=== PATIENT | female | born 1990 | race Caucasian/White ===

== ENCOUNTER 2017-07-26 21:12 | Emergency (ER) | payer MEDICAID, OTHER ==
[2017-07-26] MEDS ORDERED: SODIUM CHLORIDE 0.9% 1,000 ML IV ONE (21:45)
[2017-07-26 21:48] LABS: BASOPHILS # (AUTO) 0.1 10^3/uL (0.0-0.1); EOSINOPHILS # (AUTO) 0.5 10^3/uL (0.0-0.7); EOSINOPHILS % (AUTO) 5.3 %; HCT - HEMATOCRIT 39.8 % (37.0-47.0); HGB - HEMOGLOBIN 13.5 g/dL (12.0-16.0); LYMPHOCYTES # (AUTO) 3.1 10^3/uL (1.5-3.5); LYMPHOCYTES % (AUTO) 30.7 %; MEAN CORPUSCULAR HEMOGLOBIN 29.4 pg (27.0-31.0); MEAN CORPUSCULAR HGB CONC 33.9 g/dL (32.0-36.0); MEAN CORPUSCULAR VOLUME 86.5 fL (81.0-99.0); MEAN PLATELET VOLUME 6.8 fL (7.9-10.8); MONOCYTES # (AUTO) 0.7 10^3/uL (0.0-1.0); MONOCYTES % (AUTO) 6.8 %; NEUTROPHILS # (AUTO) 5.7 10^3/uL (1.5-6.6); NEUTROPHILS % (AUTO) 56.2 %; NUCLEATED RED BLOOD CELLS AUTO 0.1 /100WBC; RED CELL DISTRIBUTION WIDTH 13.5 % (12.0-15.0); UNCORRECTED WHITE BLOOD COUNT 10.1 x10^3/uL; WHITE BLOOD COUNT 10.1 x10^3/uL (4.8-10.8)
[2017-07-26 21:56] LABS: BILIRUBIN,URINE NEGATIVE (NEGATIVE)
[2017-07-26 21:59] LABS: UA CHARGE (STRIP ONLY) YES; UR CULTURE IF IND NOT INDICATED
[2017-07-26 22:00] LABS: ALBUMIN/GLOBULIN RATIO 1.1 (1.0-2.2); BILIRUBIN,TOTAL 0.7 mg/dL (0.2-1.0); CALCIUM 8.6 mg/dL (8.5-10.3); CREATININE 0.8 mg/dL (0.4-1.0); POTASSIUM 3.4 mmol/L (3.5-5.0); TOTAL PROTEIN 7.8 g/dL (6.7-8.2)
[2017-07-26 22:00] LABS: HCG UR QUAL NEGATIVE
[2017-07-26] MEDS ORDERED: KETOROLAC 30 MG/ML VIAL ONE (22:14)
[2017-07-26] MEDS ORDERED: KETOROLAC 30 MG/ML VIAL IVP STA (22:18)
[2017-07-26] MEDS ORDERED: IOPAMIDOL-300 100 ML VIAL ONE (22:31)
--- NOTE | 2017-07-26 22:35 | ED Physician Documentation ---
PD HPI ABD PAIN - Stated complaint Stated Complaint: RT ABD PX - Chief complaint Chief Complaint: Abd Pain - History obtained from History obtained from: Patient - History of Present Illness Timing - onset: Yesterday Timing - details: Gradual onset, Still present Quality: Cramping, Aching Location: RLQ, Suprapubic Radiation: Lower back Worsened by: Moving, Palpation Associated symptoms: Nausea, Loss of appetite. No: Fever, Vomiting, Diarrhea, Constipation, Dysuria, Hematuria Similar symptoms before: Work up / diagnostics, Treatment Recently seen: Not recently seen - Additional information Additional information: Patient is a 27 year old female with a history of endometriosis who is presenting to the emergency department for right lower quadrant pain. Patient states that it started yesterday around 6pm (27 hours prior) and has been constant. Patient states that it is in her right lower quadrant and some periumbilical pain. Patient states that it is different than her previous pain. Patient states that she hasn't fell like eating and has some nausea, but no vomiting. Review of Systems Constitutional: denies: Fever, Chills Eyes: denies: Decreased vision Ears: denies: Ear pain, Drainage/discharge Nose: reports: Reviewed and negative Throat: reports: Reviewed and negative Cardiac: denies: Chest pain / pressure, Palpitations Respiratory: reports: Reviewed and negative GI: reports: Abdominal Pain, Nausea. denies: Vomiting, Constipation, Diarrhea : reports: Vaginal bleeding. 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: Other - Present Medications Home Medications: Ambulatory Orders Medication Instructions Recorded Confirmed No Known Home Medications [No 07/26/17 07/26/17 Known Home Medications] - Allergies Allergies/Adverse Reactions: Allergies Allergy/AdvReac Type Severity Reaction Status Date / Time Penicillins Allergy Rash Verified 07/26/17 21:23 - Social History Does the pt smoke?: No Smoking Status: Never smoker Does the pt drink ETOH?: No Does the pt have substance abuse?: No - Immunizations Immunizations are current?: Yes PD ED PE NORMAL - Vitals Vital signs reviewed: Yes - General General: Alert and oriented X 3, No acute distress - HEENT HEENT: Atraumatic, PERRL - Neck Neck: Supple, no meningeal sign - Cardiac Cardiac: RRR, No murmur, No rub - Respiratory Respiratory: No respiratory distress - Derm Derm: Normal color, Warm and dry, No rash - Extremities Extremities: No deformity, No tenderness to palpate, No edema - Neuro Neuro: Alert and oriented X 3, No motor deficit, No sensory deficit, Normal speech - Psych Psych: Normal mood, Normal affect PD ED PE EXPANDED - HEENT HEENT: Dry mucous membranes - Abdomen Abdomen: Tender to palpation, RLQ, Generalized/diffuse (diffuse, worse in right lower quadrant ). No: Rebound, Guarding Results - Vitals Vitals: Vital Signs - 24 hr 07/26/17 07/26/17 21:20 23:22 Temperature 36.8 C 36.5 C Heart Rate 89 83 Respiratory 18 17 Rate Blood Pressure 121/77 114/59 L O2 Saturation 99 98 Oxygen O2 Source Room air - Labs Labs: Laboratory Tests 07/26/17 07/26/17 07/26/17 21:39 21:39 Unknown WBC 10.1 RBC 4.60 Hgb 13.5 Hct 39.8 MCV 86.5 MCH 29.4 MCHC 33.9 RDW 13.5 Plt Count 369 MPV 6.8 L Neut # 5.7 Lymph # 3.1 Schley # 0.7 Eos # 0.5 Baso # 0.1 Absolute Nucleated RBC 0.01 Nucleated RBC % 0.1 Sodium 136 Potassium 3.4 L Chloride 102 Carbon Dioxide 26 Anion Gap 8.0 BUN 25 H Creatinine 0.8 Estimated GFR (MDRD) 85 L Glucose 119 H Calcium 8.6 Total Bilirubin 0.7 AST 23 ALT 32 Alkaline Phosphatase 73 Total Protein 7.8 Albumin 4.1 Globulin 3.7 Albumin/Globulin Ratio 1.1 Lipase 27 Urine Color YELLOW Urine Clarity CLEAR Urine pH 6.0 Ur Specific [place] 1.015 Urine Protein NEGATIVE Urine Glucose (UA) NEGATIVE Urine Ketones NEGATIVE Urine Occult Blood NEGATIVE Urine Nitrite NEGATIVE Urine Bilirubin NEGATIVE Urine Urobilinogen 0.2 (NORMAL) Ur Leukocyte Esterase NEGATIVE Ur Microscopic Review NOT INDICATED Urine Culture Comments NOT INDICATED Urine HCG, Qual 10/19/17 Unknown WBC RBC Hgb Hct MCV MCH MCHC RDW Plt Count MPV Neut # Lymph # Schley # Eos # Baso # Absolute Nucleated RBC Nucleated RBC % Sodium Potassium Chloride Carbon Dioxide Anion Gap BUN Creatinine Estimated GFR (MDRD) Glucose Calcium Total Bilirubin AST ALT Alkaline Phosphatase Total Protein Albumin Globulin Albumin/Globulin Ratio Lipase Urine Color Urine Clarity Urine pH Ur Specific [place] 1.015 Urine Protein Urine Glucose (UA) Urine Ketones Urine Occult Blood Urine Nitrite Urine Bilirubin Urine Urobilinogen Ur Leukocyte Esterase Ur Microscopic Review Urine Culture Comments Urine HCG, Qual NEGATIVE - Rads (name of study) ct abdomen and pelvis Radiology: Final report received (unremarkable) PD MEDICAL DECISION MAKING - ED course Complexity details: reviewed old records, reviewed results, re-evaluated patient , considered differential, d/w patient ED course: Patient was seen and examined at bedside. IV access was gained, labs were drawn and urine was collected. Patient was treated with toradol for pain. Patient's silva score was elevated so CT was ordered. When patient returned the results were reviewed. there were no acute abnormalities. Patient required no further work up and was stable for discharge with outpatient follow up. Departure - Departure Disposition: Home, Self Care Clinical Impression: Endometriosis determined by laparoscopy Condition: Good Instructions: Endometriosis Coping Follow-Up: primary,care provider [Other] - As Needed Comments: Your diagnostics today were within normal limits. there were no major abnormalities on your blood work or imaging. It is likely secondary to your endometriosis. 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 You may return to the emergency department at any time for new , worsening or uncontrollable symptoms.
[2017-07-26] MEDS ORDERED: IOPAMIDOL-300 100 ML VIAL IVP ONE (23:01)
--- NOTE | 2017-07-26 23:18 | CT Preliminary Report ---
Exam: CT ABDOMEN/PELVIS W/ IMPRESSION: Cholecystectomy noted, otherwise unremarkable abdomen and pelvis CT. Normal appendix. [facility] SITE ID: [id number]
--- NOTE | 2017-07-26 23:21 | CT Report ---
EXAM: CT ABDOMEN AND PELVIS EXAM DATE: 07/26/2017 11:06 PM. CLINICAL HISTORY: Right lower quadrant pain. Leukocytosis. COMPARISONS: None. TECHNIQUE: Routine helical CT imaging was performed through the abdomen and pelvis. IV contrast: 100 cc of Isovue-300. Enteric contrast: No. Reconstructions: Coronal and sagittal. In accordance with CT protocol optimization, one or more of the following dose reduction techniques w ere utilized for this exam: automated exposure control, adjustment of mA and/or KV based on patient s ize, or use of iterative reconstructive technique. FINDINGS: Lung Bases: Unremarkable. Liver: Normal. No masses. Gallbladder/Bile Ducts: Cholecystectomy. No dilated ducts. Spleen: Normal. Pancreas: Normal. Adrenal Glands: Normal. Kidneys: Normal. No masses or hydronephrosis. Peritoneal Cavity/Bowel: Normal. No free fluid, free air or adenopathy. No masses or acute inflammato ry process. The appendix is well visualized and normal. Pelvic Organs: The reproductive organs and bladder are unremarkable. Vasculature: No aneurysms or other significant abnormality. Bones: No significant abnormality. Other: None. IMPRESSION: Cholecystectomy noted, otherwise unremarkable abdomen and pelvis CT. [facility] Referring Provider Line: [phone] SITE ID: [id number]
[2017-07-26 23:23] VITALS: BP 114/59
== END 2017-07-26 23:50 | disposition home or self-care (01) ==
LOC: ED 21:12
DX: N80.9 Endometriosis, unspecified (principal)
CPT/HCPCS: 36415; 74177; 80053; 81003; 81025; 83690; 85025; 96361; 96374; 99283; 99284; Q9967; 81001; 87086

== ENCOUNTER 2020-09-23 19:15 | Emergency (ER) | payer MEDICAID, OTHER ==
[2020-09-23] MEDS ORDERED: PROCHLORPERAZINE 10 MG/2 ML VIAL IVP STA (19:28)
[2020-09-23] MEDS ORDERED: diphenhydrAMINE INJ 50 MG/ML VIAL IVP STA (19:29)
[2020-09-23] MEDS ORDERED: SODIUM CHLORIDE 0.9% 1,000 ML IV STA (19:29)
[2020-09-23 20:22] LABS: BILIRUBIN,URINE NEGATIVE (NEGATIVE); GLUCOSE, URINE (UA) NEGATIVE (NEGATIVE); KETONES,URINE (UA) TRACE mg/dL (NEGATIVE); LEUKOCYTE ESTERASE, URINE NEGATIVE (NEGATIVE); NITRITE,URINE NEGATIVE (NEGATIVE); OCCULT BLOOD,URINE NEGATIVE (NEGATIVE); PROTEIN,URINE NEGATIVE (NEGATIVE); UROBILINOGEN,URINE 0.2 (NORMAL) E.U./dL (NORMAL)
[2020-09-23 20:25] LABS: CLARITY,URINE CLEAR (CLEAR)
--- NOTE | 2020-09-23 20:25 | ED Physician Documentation ---
History of Present Illness - Stated complaint Stated Complaint: HEADACHE/NAUSEA - Chief complaint Chief Complaint: Neuro - History obtained from History obtained from: Patient - History of Present Illness Timing: How many days ago (6) - Additonal information Additional information: 30-year-old female presents the emergency department for evaluation of persistent headache that began nearly a week ago. She reports the headache is bifrontal with pressure and nausea. She has lots of light and noise sensitivity. She does report a history of migraines and this headache is similar to those in the past. This was not sudden onset and it was not precipitated by any falls or trauma. She has had no fevers. No neck pain or nuchal rigidity. In the past she has taken Topamax to help with headaches but has been out for nearly 3 months. She has tried Maxalt as well as Excedrin without relief of the headache. She is scheduled to see her primary care provider in October for follow-up of her headaches. She does have some nausea but no vomiting. No abdominal pain. No dysuria urgency or frequency. Review of Systems Constitutional: denies: Fever, Chills Eyes: reports: Photophobia Ears: reports: Other (noise sensitivity) Nose: reports: Reviewed and negative Throat: reports: Reviewed and negative Cardiac: reports: Reviewed and negative Respiratory: reports: Reviewed and negative GI: reports: Nausea. denies: Abdominal Pain, Vomiting : denies: Dysuria, Frequency, Hesitancy Skin: reports: Reviewed and negative Musculoskeletal: reports: Reviewed and negative Neurologic: reports: Headache. 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: Other - Present Medications Home Medications: Ambulatory Orders Medication Instructions Recorded Confirmed No Known Home Medications 07/26/17 09/23/20 - Allergies Allergies/Adverse Reactions: Allergies Allergy/AdvReac Type Severity Reaction Status Date / Time Penicillins Allergy Rash Verified 09/23/20 19:27 - Social History Does the pt smoke?: No Smoking Status: Never smoker Does the pt drink ETOH?: No Does the pt have substance abuse?: No - Immunizations Immunizations are current?: Yes - POLST Patient has POLST: No PD ED PE EXPANDED - General General: Alert, In Pain - HEENT HEENT: Moist mucous membranes. No: Right frontal sinus TTP, Left frontal sinus TTP, Right maxillary sinus TTP, Left maxillary sinus TTP - Eyes Eyes: PERRL, Normal accommodation, EOMI - Neck Neck: Supple w/out meningeal sx, No tenderness. No: Adenopathy - Cardiac Cardiac: Regular Rate, Regular Rhythm, Radial strong equal, Cap refill < 2 sec - Respiratory Respiratory: Clear to ausultation racheal. No: Distress, Labored - Abdomen Abdomen: Normal Bowel sounds. No: Tender to palpation - Back Back: Normal exam - Derm Derm: Normal color. No: Rash - Extremities Extremities: Normal - Neuro Neuro: Alert and Oriented X 3, CNII-XII intact - GCS Eye Opening: Spontaneous Motor: Obeys Commands Verbal: Oriented Total: 15 Results - Vitals Vitals: Vital Signs - 24 hr 09/23/20 19:21 Temperature 37.1 C Heart Rate 94 Respiratory 18 Rate Blood Pressure 130/70 O2 Saturation 96 Oxygen O2 Source Room air - Labs Labs: Laboratory Tests 09/23/20 09/23/20 19:40 20:02 HCG, Quant < 0.60 Urine Color YELLOW Urine Clarity CLEAR Urine pH 6.0 Ur Specific [place] >=1.030 H Urine Protein NEGATIVE Urine Glucose (UA) NEGATIVE Urine Ketones TRACE Urine Occult Blood NEGATIVE Urine Nitrite NEGATIVE Urine Bilirubin NEGATIVE Urine Urobilinogen 0.2 (NORMAL) Ur Leukocyte Esterase NEGATIVE Ur Microscopic Review NOT INDICATED Urine Culture Comments NOT INDICATED PD MEDICAL DECISION MAKING - ED course Complexity details: reviewed results, re-evaluated patient, considered differential, d/w patient ED course: 30-year-old female presents the emergency department for evaluation and treatment of her headache that began nearly 1 week ago. She does have a history of migraines and this is similar to those in the past. There are no red flags associated with this headache such as fever neck pain sudden onset or focal neuro deficits. She was given Compazine and Benadryl via IV as well as 1 L of IV fluids here in the emergency department. This was then followed by 10 mg of Decadron. On reevaluation she had nearly full relief of her headache and was feeling much better. She will continue to follow-up with her primary care provider for longer-term evaluation and management of her headaches. Emergent return precautions discussed Departure - Departure Disposition: Home, Self Care Clinical Impression: Headache Qualifiers: Headache type: unspecified Headache chronicity pattern: acute headache Intractability: not intractable Qualified Code(s): R51.9 - Headache, unspecified Condition: Stable Record reviewed to determine appropriate education?: Yes Instructions: ED Headache Migraine Comments: I am glad that your headache has gone away. Continue to stay well-hydrated at home and take as needed ibuprofen or Tylenol. Please get plenty of rest tonight and drink lots of fluids. Do not miss the follow-up appointment with your primary care doctor in October 09 get your medications reordered. If at any point your headache returns, suddenly severe, associated with fever or uncontrolled vomiting please return immediately to the ER
[2020-09-23] MEDS ORDERED: DEXAMETHASONE 10 MG/ML VIAL PO STA (20:28)
[2020-09-23] MEDS ORDERED: CHERRY SYRUP 10 ML UDC PO ONE (20:28)
[2020-09-23 21:07] VITALS: BP 117/62
== END 2020-09-23 21:09 | disposition home or self-care (01) ==
LOC: ED 19:15
DX: R51.9 Headache, unspecified (principal); R11.0 Nausea; H53.149 Visual discomfort, unspecified; Z86.69 Personal history of other diseases of the nervous system and sense organs
CPT/HCPCS: 36415; 81003; 84702; 96374; 99283; 99284; A9270; J1200; 81001; 87086

== ENCOUNTER 2021-01-30 | Outpatient (CLI) | payer MEDICAID | END 2021-01-30 03:39 | disposition critical access hospital (66) | CPT/HCPCS: A0425; A0429; A0999 ==

== ENCOUNTER 2021-01-30 04:01 | Emergency (ER) | payer MEDICAID ==
[2021-01-30] MEDS ORDERED: KETOROLAC 30 MG/ML VIAL IVP STA (04:17)
[2021-01-30] MEDS ORDERED: PROMETHAZINE 25 MG/1 ML VIAL IM STA (04:17)
[2021-01-30] MEDS ORDERED: diphenhydrAMINE INJ 50 MG/ML VIAL IVP STA (04:17)
[2021-01-30] MEDS ORDERED: SODIUM CHLORIDE 0.9% 1,000 ML IV STA (04:17)
--- NOTE | 2021-01-30 04:20 | ED Physician Documentation ---
History of Present Illness - Stated complaint Stated Complaint: CP/SOA/ DIFF SPEAKING - History obtained from History obtained from: Patient - Additonal information Additional information: Patient comes emergency department chief complaint of chest pain and migraine headache. Patient states that she has been having a headache for the last approximately Several days. She states it has been behind her eyes and in the back of her head, and that she has had nausea but no vomiting. The patient states that she is also been under a lot of stress lately which she thinks is contributing. For the last couple of days, patient also has noted intermittent substernal chest pressure that seems to radiate out in both directions to the right and left. No sharp pain. No radiation of the sensation to her shoulder and neck. No shortness of breath. Patient states that she has not been sleeping well for several days and has started to feel a dizzy sensation when she is at work. 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 No focal neurologic deficits. No new medications or change doses. No other complaints at this time. Review of Systems Ten Systems: 10 systems reviewed and negative Constitutional: reports: Reviewed and negative Eyes: reports: Reviewed and negative Ears: reports: Reviewed and negative Nose: reports: Reviewed and negative Throat: reports: Reviewed and negative Cardiac: reports: Reviewed and negative Respiratory: reports: Reviewed and negative GI: reports: Nausea : reports: Reviewed and negative Skin: reports: Reviewed and negative Musculoskeletal: reports: Reviewed and negative Neurologic: reports: Headache Psychiatric: reports: Anxiety, Insomnia Endocrine: reports: Reviewed and negative Immunocompromised: reports: Reviewed and negative PD PAST MEDICAL HISTORY - Present Medications Home Medications: Ambulatory Orders Medication Instructions Recorded Confirmed ARIPiprazole [Abilify] 5 mg PO DAILY 01/30/21 01/30/21 Bupropion HCl [Wellbutrin Xl] 300 mg PO DAILY 01/30/21 01/30/21 Ondansetron Odt [Zofran] 4 mg TL Q6H PRN #10 tablet 01/30/21 Topiramate [Topamax] 1.5 tab PO QPM 01/30/21 01/30/21 Topiramate [Topamax] 50 mg PO DAILY 01/30/21 01/30/21 - Allergies Allergies/Adverse Reactions: Allergies Allergy/AdvReac Type Severity Reaction Status Date / Time Penicillins Allergy Hives Verified 01/30/21 04:29 PD ED PE NORMAL - Vitals Vital signs reviewed: Yes - General General: Alert and oriented X 3, No acute distress, Well developed/nourished - HEENT HEENT: Atraumatic, PERRL, EOMI, Moist mucous membranes, Other (Diffuse mild tenderness in bilateral forehead and scientology areas. No facial swelling. 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, Normal speech - Psych Psych: Normal mood, Normal affect Results - Vitals Vitals: Vital Signs - 24 hr 01/30/21 01/30/21 01/30/21 04:00 04:17 04:22 Temperature 36.8 C Heart Rate 88 66 Respiratory 24 21 Rate Blood Pressure 128/86 H 115/76 Blood Pressure 108/76 [Left] Blood Pressure 128/86 H [Right] O2 Saturation 99 98 Oxygen O2 Source Room air - EKG (time done) 0416 Rate: Rate (enter#) (75) Rhythm: NSR [place]: Normal Intervals: Normal [place] QRS: Normal Ischemia: Normal ST segments, T wave inversion (lead III, AVF, biphasic lead IV) Compare to prior EKG: Old EKG unavailable Computer interpretation: Agree with computer PD MEDICAL DECISION MAKING - ED course Complexity details: reviewed results, re-evaluated patient, considered differential, d/w patient ED course: I discussed with the patient that she is overall low risk for coronary artery disease, and that I suspect her symptoms are partially due to stress/anxiety plus the lack of sleep lately with her headache. EKG was performed the patient and was unremarkable. The patient had no focal neurologic deficits, either objectively or subjectively, and I did not feel that CT imaging was indicated. The patient was treated symptomatically with IV fluids, Phenergan, Toradol, and Benadryl. We have discussed home management of symptoms, as well as the usual indications for return. Departure - Departure Disposition: 01 Home, Self Care Clinical Impression: Dizziness Headache Qualifiers: Headache type: unspecified Headache chronicity pattern: acute headache Intractability: not intractable Qualified Code(s): R51.9 - Headache, unspecified Chest pain Qualifiers: Chest pain type: unspecified Qualified Code(s): R07.9 - Chest pain, unspecified Condition: Stable Instructions: ED Chest Pain NonCardiac, ED Dizziness UKO, ED Headache Migraine Prescriptions: Ondansetron Odt [Zofran] 4 mg TL Q6H PRN #10 tablet PRN Reason: Nausea / Vomiting
[2021-01-30 05:43] VITALS: BP 112/74
== END 2021-01-30 05:10 | disposition home or self-care (01) ==
LOC: ED 04:01 → MERGE 04:01 → ED 05:10
DX: R42 Dizziness and giddiness (principal); R51.9 Headache, unspecified; R07.89 Other chest pain; R11.0 Nausea; F41.9 Anxiety disorder, unspecified; F43.9 Reaction to severe stress, unspecified
CPT/HCPCS: 93005; 96372; 96374; 96375; 99284; J1200

== ENCOUNTER 2021-02-01 08:27 | Outpatient (CLI) | payer OTHER, MEDICAID ==
--- NOTE | 2021-02-01 11:08 | XRAY Report ---
PROCEDURE: Ankle 3 View LT INDICATIONS: SPRAIN OF CALCANEOFIBULAR LIGAMENT OF L ANKLE TECHNIQUE: 3 views of the ankle were acquired. COMPARISON: None. FINDINGS: Bones: No acute fractures or dislocations. Possible small lucency at the lateral talar dome could r epresent a nondisplaced osteochondral lesion. Ankle mortise is normally aligned. No suspicious bony lesions. A small plantar calcaneal spur is present. Soft tissues: Mild soft tissue edema is seen surrounding the ankle. IMPRESSION: No acute fracture identified. A small lucency at the lateral talar dome could represent a small osteochondral lesion. Findings may be further evaluated with MRI if indicated clinically. Reviewed by: Chito Sullivan MD on 02/01/2021 11:07 AM PDT Approved by: Chito Sullivan MD on 02/01/2021 11:07 AM PDT Station ID: [id number]
== END 2021-02-01 23:59 | disposition home or self-care (01) ==
LOC: DI.N 08:27
PROVIDERS: ATTEND Emergency Medicine
DX: R93.6 Abnormal findings on diagnostic imaging of limbs (principal)